=== PATIENT | female | born 1995 | race Caucasian/White ===

== ENCOUNTER 2018-01-15 22:00 | Emergency (ER) | payer BC, OTHER ==
--- NOTE | 2018-01-15 22:09 | EDM.PDOC ---
ED HPI GENERAL MEDICAL PROBLEM - General Chief Complaint: Skin Complaint Stated Complaint: LEFT ARM PAIN Time Seen by Provider: 01/15/18 22:09 - History of Present Illness INITIAL COMMENTS - FREE TEXT/NARRATIVE: HISTORY AND PHYSICAL: History of present illness: 22-year-old female presenting [facility] department with chief complaint of left axillary pain and swelling secondary to abscess. Patient states that she was seen by the nurse practitioner baby stroller rental clerk this last week an ultrasound was done showing a 1.5 x 0.1 cm subcutaneous abscess. This was on 01/12. She was initially started on antibiotic which was switched on Tuesday to clindamycin. States that since then she has had increasing pain and swelling in the left axilla. She's had some associated fevers, headaches, night sweats, and dizziness. She denies any nausea or vomiting. In the emergency room for further evaluation. There is a 6 cm x 4 cm oval lesion on the left upper inner arm just lateral to the axilla. Area is erythematous and there is induration approximately 3 cm x 2 cm. Patient has pain extending into the left axilla and left breast. No noted streaking. Review of systems: As per history of present illness and below otherwise all systems reviewed and negative. Past medical history: As per history of present illness and as reviewed below otherwise noncontributory. Surgical history: As per history of present illness and as reviewed below otherwise noncontributory. Social history: No reported history of drug or alcohol abuse. Family history: As per history of present illness and as reviewed below otherwise noncontributory. Physical exam: Please see above H&P HEENT: Atraumatic, normocephalic, pupils reactive, negative for conjunctival pallor or scleral icterus, mucous membranes moist, throat clear, neck supple, nontender, trachea midline. Lungs: Clear to auscultation, breath sounds equal bilaterally, chest nontender. Heart: S1S2, regular, negative for clicks, rubs, or JVD. Abdomen: Soft, nondistended, nontender. Negative for masses or hepatosplenomegaly. Negative for costovertebral tenderness. Pelvis: Stable nontender. Genitourinary: Deferred. Rectal: Deferred. Extremities: Please see above H&P, negative for cords or calf pain. Neurovascular unremarkable. Neuro: Awake, alert, oriented. Cranial nerves II through XII unremarkable. Cerebellum unremarkable. Motor and sensory unremarkable throughout. Exam nonfocal. Diagnostics: CBC, CMP, blood culture 2, ultrasound left abscess axilla, UA/UC Therapeutics: 1 L NS x1, Toradol 30 mg IV x 1, 5 mL 1% lidocaine with epi, iodoform gauze, I&D of abscess L axilla Impression: Cellulitis with abscess I&D abscess Plan: CBC, CMP, UA, initial blood culture were unremarkable. Preliminary findings on ultrasound of the left axillary area showed a 2 x 2 centimeter subcutaneous heterogeneous area of fluid in the soft tissue most likely representing an abscess. Using 5 mL of 1% lidocaine with epi area involved was anesthetized with good analgesia. Under normal steril technique and using an 11 blade I made a 1 cm vertical incision and approximately 20 mL of copious purulent material was extracted. Iodoform gauze was then packed into the wound and she is going to follow-up with the provider that she saw on Tuesday today at 9:30. Instructed her to keep the area clean and dry and repacked the wound on a daily basis. She was given iodoform gauze and discharged in good condition with instructions to watch for signs of infection including but not limited to increased swelling, redness, and drainage. She is to return the emergency department if she has a new or worsening symptoms. Definitive disposition and diagnosis as appropriate pending reevaluation and review of above. left axilla Pain Score (Numeric/FACES): 8 - Related Data Allergies Allergy/AdvReac Type Severity Reaction Status Date / Time No Known Allergies Allergy Verified 01/15/18 22:14 Home Meds: Home Meds metFORMIN [Glucophage XR] 500 mg PO BID 05/28/15 [History] Nortriptyline 1 cap PO DAILY 01/15/18 [History] Past Medical History - Past Health History Medical/Surgical History: Denies Medical/Surgical History ED ROS GENERAL - Review of Systems Review Of Systems: ROS reveals no pertinent complaints other than HPI. ED EXAM, SKIN/RASH Exam: See Below Course - Vital Signs Last Recorded V/S: Last Vital Signs Temp 99 F 01/16/18 01:25 Pulse 87 01/16/18 01:25 Resp 16 01/16/18 01:25 BP 153/78 H 01/16/18 01:25 Pulse Ox 98 01/16/18 01:25 - Orders/Labs/Meds Orders: Active Orders 24 hr Category Date Time Status Extremity Non Vascular Lt [US] Stat Exams 01/15/18 23:19 Taken CULTURE BLOOD [BC] Stat Lab 01/15/18 22:43 Received CULTURE BLOOD [BC] Stat Lab 01/15/18 22:56 Results CULTURE WOUND [RM] Stat Lab 01/16/18 02:56 Ordered UA W/MICROSCOPIC [URIN] Stat Lab 01/15/18 23:10 Ordered Blood Culture x2 Reflex Set [OM.PC] Stat Oth 01/15/18 22:43 Ordered Labs: Laboratory Tests 01/15/18 01/16/18 01/16/18 Range/Units 23:10 00:35 00:35 WBC 10.10 (4.0-11.0) K/uL RBC 4.51 (4.30-5.90) M/uL Hgb 13.4 (12.0-16.0) g/dL Hct 39.1 (36.0-46.0) % MCV 86.7 (80.0-98.0) fL MCH 29.7 (27.0-32.0) pg MCHC 34.3 (31.0-37.0) g/dL RDW Std Deviation 40.1 (28.0-62.0) fl RDW Coeff of Farzad 13 (11.0-15.0) % Plt Count 261 (150-400) K/uL MPV 9.00 (7.40-12.00) fL Neut % (Auto) 64.2 (48.0-80.0) % Lymph % (Auto) 25.6 (16.0-40.0) % [place] % (Auto) 8.5 (0.0-15.0) % Eos % (Auto) 1.4 (0.0-7.0) % Baso % (Auto) 0.3 (0.0-1.5) % Neut # (Auto) 6.5 H (1.4-5.7) K/uL Lymph # (Auto) 2.6 H (0.6-2.4) K/uL Marion # (Auto) 0.9 H (0.0-0.8) K/uL Eos # (Auto) 0.1 (0.0-0.7) K/uL Baso # (Auto) 0.0 (0.0-0.1) K/uL Nucleated RBC % 0.0 /100WBC Nucleated RBCs # 0 K/uL Lactate 0.6 (0.20-2.00) mmol/L Sodium (136-145) mmol/L Potassium (3.5-5.1) mmol/L Chloride (98-107) mmol/L Carbon Dioxide (21.0-32.0) mmol/L BUN (7.0-18.0) mg/dL Creatinine (0.6-1.0) mg/dL Est Cr Clr Drug Dosing mL/min Estimated GFR (MDRD) ml/min Glucose (74-106) mg/dL Calcium (8.5-10.1) mg/dL Total Bilirubin (0.2-1.0) mg/dL AST (15-37) IU/L ALT (14-63) IU/L Alkaline Phosphatase (46-116) U/L Total Protein (6.4-8.2) g/dL Albumin (3.4-5.0) g/dL Globulin (2.0-3.5) g/dL Albumin/Globulin Ratio (1.3-2.8) Urine Color YELLOW Urine Appearance CLOUDY Urine pH 8.0 (5.0-8.0) Ur Specific [place] 1.015 (1.001-1.035) Urine Protein NEGATIVE (NEGATIVE) mg/dL Urine Glucose (UA) NEGATIVE (NEGATIVE) mg/dL Urine Ketones NEGATIVE (NEGATIVE) mg/dL Urine Occult Blood NEGATIVE (NEGATIVE) Urine Nitrite NEGATIVE (NEGATIVE) Urine Bilirubin NEGATIVE (NEGATIVE) Urine Urobilinogen 1.0 (<2.0) EU/dL Ur Leukocyte Esterase SMALL (NEGATIVE) Urine RBC 0-2 (0-2/HPF) Urine WBC 1-3 (0-5/HPF) Ur Epithelial Cells FEW (NONE-FEW) Amorphous Sediment MANY (NEGATIVE) Urine Bacteria FEW (NEGATIVE) 01/16/18 Range/Units 00:35 WBC (4.0-11.0) K/uL RBC (4.30-5.90) M/uL Hgb (12.0-16.0) g/dL Hct (36.0-46.0) % MCV (80.0-98.0) fL MCH (27.0-32.0) pg MCHC (31.0-37.0) g/dL RDW Std Deviation (28.0-62.0) fl RDW Coeff of Farzad (11.0-15.0) % Plt Count (150-400) K/uL MPV (7.40-12.00) fL Neut % (Auto) (48.0-80.0) % Lymph % (Auto) (16.0-40.0) % Marion % (Auto) (0.0-15.0) % Eos % (Auto) (0.0-7.0) % Baso % (Auto) (0.0-1.5) % Neut # (Auto) (1.4-5.7) K/uL Lymph # (Auto) (0.6-2.4) K/uL Marion # (Auto) (0.0-0.8) K/uL Eos # (Auto) (0.0-0.7) K/uL Baso # (Auto) (0.0-0.1) K/uL Nucleated RBC % /100WBC Nucleated RBCs # K/uL Lactate (0.20-2.00) mmol/L Sodium 138 (136-145) mmol/L Potassium 4.4 (3.5-5.1) mmol/L Chloride 107 (98-107) mmol/L Carbon Dioxide 25.2 (21.0-32.0) mmol/L BUN 15 (7.0-18.0) mg/dL Creatinine 0.8 (0.6-1.0) mg/dL Est Cr Clr Drug Dosing 109.08 mL/min Estimated GFR (MDRD) > 60.0 ml/min Glucose 96 (74-106) mg/dL Calcium 8.6 (8.5-10.1) mg/dL Total Bilirubin 0.4 (0.2-1.0) mg/dL AST 11 L (15-37) IU/L ALT 20 (14-63) IU/L Alkaline Phosphatase 39 L (46-116) U/L Total Protein 6.3 L (6.4-8.2) g/dL Albumin 3.3 L (3.4-5.0) g/dL Globulin 3.0 (2.0-3.5) g/dL Albumin/Globulin Ratio 1.1 L (1.3-2.8) Urine Color Urine Appearance Urine pH (5.0-8.0) Ur Specific [place] (1.001-1.035) Urine Protein (NEGATIVE) mg/dL Urine Glucose (UA) (NEGATIVE) mg/dL Urine Ketones (NEGATIVE) mg/dL Urine Occult Blood (NEGATIVE) Urine Nitrite (NEGATIVE) Urine Bilirubin (NEGATIVE) Urine Urobilinogen (<2.0) EU/dL Ur Leukocyte Esterase (NEGATIVE) Urine RBC (0-2/HPF) Urine WBC (0-5/HPF) Ur Epithelial Cells (NONE-FEW) Amorphous Sediment (NEGATIVE) Urine Bacteria (NEGATIVE) Meds: Medications Discontinued Medications Generic Name Dose Route Start Last Admin Trade Name Freq PRN Reason Stop Dose Admin Sodium Chloride 1,000 mls @ 999 mls/hr 01/15/18 22:44 01/15/18 23:23 Normal Saline IV 01/15/18 23:44 999 mls/hr STAT ONE Administration Ketorolac Tromethamine 30 mg 01/15/18 23:36 01/16/18 00:02 Toradol IVPUSH 01/15/18 23:37 30 mg ONETIME ONE Administration Lidocaine/Epinephrine 20 ml 01/16/18 01:58 01/16/18 02:46 Xylocaine 1% With Epinephrine 1:100,000 INJECT 01/16/18 01:59 20 ml ONETIME ONE Administration Departure - Departure Time of Disposition: 03:04 Disposition: Home, Self-Care 01 Condition: Good Clinical Impression: Cellulitis and abscess of other specified site - Discharge Information *PRESCRIPTION DRUG MONITORING PROGRAM REVIEWED*: Not Applicable *COPY OF PRESCRIPTION DRUG MONITORING REPORT IN PATIENT KARL: Not Applicable Referrals: Jessie Crook NP [Primary Care Provider] - Forms: ED Department Discharge Additional Instructions: My general discharge The following information is given to patients seen in the emergency department who are being discharged to home. This information is to outline your options for follow-up care. We provide all patients seen in our emergency department with a follow-up referral. The need for follow-up, as well as the timing and circumstances, are variable depending upon the specifics of your emergency department visit. If you don't have a primary care physician on staff, we will provide you with a referral. We always advise you to contact your personal physician following an emergency department visit to inform them of the circumstance of the visit and for follow-up with them and/or the need for any referrals to a consulting specialist. The emergency department will also refer you to a specialist when appropriate. This referral assures that you have the opportunity for follow-up care with a specialist. All of these measure are taken in an effort to provide you with optimal care, which includes your follow-up. Under all circumstances we always encourage you to contact your private physician who remains a resource for coordinating your care. When calling for follow-up care, please make the office aware that this follow-up is from your recent emergency room visit. If for any reason you are refused follow-up, please contact the [facility] Emergency Department at and asked to speak to the emergency department charge nurse. [facility] [address] [place] [phone] As instructed please follow-up with provider today at 9:30 AM. Repack wound daily. Watch for signs of infection which we discussed. Return to emergency department if any new or worsening symptoms. - My Orders Last 24 Hours: My Active Orders 01/15/18 22:43 CULTURE BLOOD [BC] Stat Blood Culture x2 Reflex Set [OM.PC] Stat 01/15/18 22:56 CULTURE BLOOD [BC] Stat 01/15/18 23:10 UA W/MICROSCOPIC [URIN] Stat 01/15/18 23:19 Extremity Non Vascular Lt [US] Stat 01/16/18 02:56 CULTURE WOUND [RM] Stat - Assessment/Plan Last 24 Hours: My Active Orders 01/15/18 22:43 CULTURE BLOOD [BC] Stat Blood Culture x2 Reflex Set [OM.PC] Stat 01/15/18 22:56 CULTURE BLOOD [BC] Stat 01/15/18 23:10 UA W/MICROSCOPIC [URIN] Stat 01/15/18 23:19 Extremity Non Vascular Lt [US] Stat 01/16/18 02:56 CULTURE WOUND [RM] Stat
[2018-01-15] MEDS ORDERED: Sodium Chloride 0.9% 1,000 ML IV ONE (22:44)
[2018-01-15] MEDS ORDERED: Ketorolac 30 MG/ML SDV IVPUSH ONE (23:36)
[2018-01-16 01:09] LABS: CHLORIDE,CL 107 mmol/L (98-107); SODIUM,NA 138 mmol/L (136-145)
[2018-01-16] MEDS ORDERED: Lidocaine 1% with EPINEPHrine 1:100,000 20 ML MDV INJECT ONE (01:58)
[2018-01-16 03:19] VITALS: BP 141/81
--- NOTE | 2018-01-17 09:15 | US ---
EXAM DATE: 01/15/18 PATIENT'S AGE: 22 Patient: SANTANA LEWIS Facility: [facility] Site . Site : 1997 Study: US-Extremity [id number]/23/2018 12:03:10 AM Ordering Physician: Perry Harmon Final Report: HISTORY: Cellulitis. TECHNIQUE: Ultrasound of the left upper extremity. COMPARISON: No prior. FINDINGS: There is a heterogeneous process involving the medial aspect of the left upper extremity which measures approximately 2 x 2.1 x 2 cm in size. This may relate to an area of phlegmon as opposed to a well-formed abscess as the process demonstrates some internal vascularity. A mass is not excluded and clinical followup is recommended. IMPRESSION: Heterogeneous approximately 2.1 cm process involving the medial aspect of the left upper extremity. This may relate more to a phlegmon than a well-formed abscess as there appears to be some internal vascularity. Mass of other etiology is not excluded and clinical followup is recommended. Dictated by Kirby Quijano MD @ Jan 17 2018 7:33AM Signed by: Kirby Quijano MD @01/17/2018 7:33:56 AM (Electronic Signature) Report Signed by Proxy. CAMILLA
== END 2018-01-16 03:19 | disposition home or self-care (01) ==
LOC: MW.ED 22:00
DX: L03.112 Cellulitis of left axilla (principal); L02.412 Cutaneous abscess of left axilla
CPT/HCPCS: 10061; 36415; 76881; 80053; 81001; 83605; 85025; 87040; 87070; 87077; 87186; 96361; 96374; 99284; J1885; J7040

== ENCOUNTER 2021-09-16 18:40 | Emergency (ER) | payer BC, OTHER ==
[2021-09-16] MEDS ORDERED: predniSONE 20 MG Tab PO ONE (18:42)
[2021-09-16 18:50] VITALS: BP 141/89; PULSE 102
== END 2021-09-16 18:59 | disposition home or self-care (01) ==
LOC: MW.ED 18:40
DX: J30.81 Allergic rhinitis due to animal (cat) (dog) hair and dander (principal)
CPT/HCPCS: 99283; A9270

== ENCOUNTER 2023-01-05 14:27 | Emergency (ER) | payer OTHER ==
[2023-01-05 15:04] LABS: BASOPHILS PERCENT AUTO 0.3 % (0.0-1.5); EOSINOPHILS ABSOLUTE AUTO 0.1 K/uL (0.0-0.7); EOSINOPHILS PERCENT AUTO 1.2 % (0.0-7.0); HEMATOCRIT 39.2 % (36.0-46.0); HEMOGLOBIN 13.7 g/dL (12.0-16.0); LYMPHOCYTES ABSOLUTE AUTO 2.2 K/uL (0.6-2.4); LYMPHOCYTES PERCENT AUTO 22.2 % (16.0-40.0); MEAN CORPUSCULAR HEMOGLOBIN 30.9 pg (27.0-32.0); MEAN CORPUSCULAR HGB CONC 34.9 g/dL (31.0-37.0); MEAN CORPUSCULAR VOLUME 88.3 fL (80.0-98.0); MONOCYTES ABSOLUTE AUTO 0.7 K/uL (0.0-0.8); MONOCYTES PERCENT AUTO 7.1 % (0.0-15.0); NEUTROPHILS ABSOLUTE AUTO 6.9 K/uL (1.4-5.7); NEUTROPHILS PERCENT AUTO 69.2 % (48.0-80.0); PLATELET COUNT,PLT 284 K/uL (150-400); RED BLOOD CELL COUNT 4.44 M/uL (4.30-5.90); WHITE BLOOD CELL COUNT,WBC 10.02 K/uL (4.0-11.0)
[2023-01-05 15:10] LABS: APPEARANCE,URINE CLEAR; BILIRUBIN,URINE NEGATIVE (NEGATIVE); COLOR,URINE YELLOW; GLUCOSE,URINE NEGATIVE (NEGATIVE); KETONES,URINE NEGATIVE (NEGATIVE); LEUKOCYTE ESTERASE,URINE NEGATIVE (NEGATIVE); NITRITE,URINE NEGATIVE (NEGATIVE); OCCULT BLOOD,URINE SMALL (NEGATIVE); PH,URINE 6.5 (5.0-8.0); PROTEIN,URINE NEGATIVE (NEGATIVE); UROBILINOGEN,URINE 0.2 EU/dL (<2.0)
[2023-01-05 15:19] LABS: BACTERIA,URINE NOT SEEN (NEGATIVE); EPITHELIAL CELLS,URINE RARE (NONE-FEW); WBC,URINE NONE SEEN (0-5/HPF)
[2023-01-05] MEDS ORDERED: Ondansetron 4 MG/2 ML SDV IVPUSH ONE (15:42)
[2023-01-05] MEDS ORDERED: Sodium Chloride 0.9% 1,000 ML IV ONE (15:42)
[2023-01-05 15:53] LABS: A/G RATIO 1.3 (0.9-1.6); ALBUMIN 3.7 g/dL (3.4-5.0); BILIRUBIN TOTAL 0.4 mg/dL (0.2-1.0); CALCIUM 9.4 mg/dL (8.5-10.1); CARBON DIOXIDE,CO2 23.8 mmol/L (21.0-32.0); CREATININE 0.7 mg/dL (0.6-1.0); EST CRCL DRUG DOSING (CG) 119.47 mL/min; POTASSIUM,K 3.7 mmol/L (3.5-5.1); PROTEIN TOTAL,TP 6.5 g/dL (6.4-8.2)
[2023-01-05 17:57] VITALS: BP 124/73; PULSE 86
== END 2023-01-05 17:55 | disposition home or self-care (01) ==
LOC: MW.ED 14:27
DX: O20.0 Threatened abortion (principal); Z3A.01 Less than 8 weeks gestation of pregnancy
CPT/HCPCS: 36415; 76817; 80053; 81001; 84702; 85025; 86900; 86901; 96361; 96374; 99284; J2405; J7030; 99283